=== PATIENT | male | born 1980 | race Caucasian/White ===

== ENCOUNTER 2024-03-23 17:43 | Emergency (ER) | payer OTHER, SELFPAY ==
[2024-03-23 17:43] VITALS: BP 144/84; PULSE 87; RESP 17; TEMP 36.2; O2SAT 97
--- NOTE | 2024-03-23 17:45 | RT.EKG_ITS ---
APPROVED REPORT Exam: Resting ECG Reason for Exam: Altered mental status Patient Location: E HR:86 bpm ECG Measurements Heart Rate 86 AXIS MD 140 P 61 QRSd 89 QRS -27 QT 367 T 33 QTc 440 Conclusion Sinus rhythm. 86 no stemi
--- NOTE | 2024-03-23 18:00 | DI.CT_ITS ---
Exam(s) CT HEAD WO EXAM: CT HEAD WO CLINICAL HISTORY: ams. TECHNIQUE: Imaging Protocol: Axial computed tomography images with coronal and sagittal reformatted images were created and reviewed COMPARISON: No exams were available for comparison FINDINGS: Ventricles and Extra axial spaces: Normal in size and morphology for the patient's age. Hemorrhage: None. Cerebral parenchyma: No evidence of acute infarct or mass. Midline shift: None. Brainstem/Cerebellum: Normal. Calvarium: Normal. Visualized Paranasal sinuses:Clear. Mastoids: Clear. Soft Tissues: Unremarkable. ORBITS: Unremarkable. PITUITARY: Not enlarged. IMPRESSION: No acute intracranial process. RADIATION DOSE DELIVERED: Total DLP DATA REPOSITORY: All CT scans at this facility are submitted to the National Radiology Data Registry (NRDR) Dose Index Registry (DIR) with the [employer] ([employer]). RADIATION OPTIMIZATION: All CT scans at this facility use at least one of these dose optimization te chniques: automated exposure control; mA and/or kV adjustment per patient size (includes targeted exa ms where dose is matched to clinical indication); or iterative reconstruction.
[2024-03-23 18:26] LABS: Abs Immature Grans 0.03 10^3/uL (0.0-0.06); Absolute Basophil Count 0.08 10^3/uL (0.0-0.2); Absolute Eosinophil Count 0.28 10^3/uL (0.0-0.7); Absolute Lymphocyte Count 2.46 10^3/uL (1.2-3.4); Absolute Monocyte Count 0.74 10^3/uL (0.1-0.8); Basophils % 0.8 %; Eosinophils % 2.9 %; HCT 45.8 % (40.0-50.0); HGB 15.5 g/dL (13.5-17.5); Immature Grans % 0.3 %; Lymphocytes % 25.7 %; MCH 28.9 pg (27.0-33.0); MCHC 33.8 % (32.0-36.0); MCV 85 fL (80-95); MPV 8.4 fL (8.0-11.0); Monocytes % 7.7 %; Neutrophils % 62.6 %; Platelet Count 384 10^3/uL (130-400); RBC 5.37 10^6/uL (4.36-5.78); RDW 13.7 % (11.8-14.1); RDW-SD 42.5 fL; WBC 9.59 10^3/uL (4.4-10.8)
[2024-03-23 19:03] LABS: ALT 51 U/L (16-63); AST 28 U/L (15-37); Albumin 3.6 g/dL (3.4-5.0); Alkaline Phosphatase 81 U/L (46-116); Anion Gap 9.9 mmol/L (3-11); BUN 10 mg/dL (7-18); Bilirubin, Total 0.45 mg/dL (0.2-1.0); CO2 26.1 mmol/L (21.0-32.0); Calcium 10.1 mg/dL (8.5-10.1); Chloride 104 mmol/L (98-107); Estimated GFR 96.37 (mL/min/1.73m2); Glucose 174 mg/dL (74-106); Potassium 3.2 mmol/L (3.5-5.1); Sodium 140 mmol/L (136-145); TSH (W/Ref FT4) 0.91 uIU/mL (0.36-3.74); Total Protein 7.2 g/dL (6.4-8.2)
[2024-03-23 19:05] LABS: Ammonia 21 umol/L (11-32)
[2024-03-23 19:16] LABS: ETHANOL BLOOD < 3.0 mg/dL (<10)
[2024-03-23] MEDS: Potassium Chloride Liquid 20 MEQ PKT 40 MEQ PO (19:21)
--- NOTE | 2024-03-23 22:42 | ED.GENADUL_ITS ---
Discharge Plan Disposition Patient Disposition: Home Condition: Stable Discharge Details Clinical Impression: Acute alteration in mental status Primary Care Provider: Unknown,Unknown ED Provider: Jose Khan Discharge Instructions Additional Instructions: Lab work and CT scan are all unremarkable and do not explain the reported change in the patient's mental status. He has had a normal mental status and normal functioning while in the emergency department. He did have some mild hypokalemia that was repleted with oral medication. HPI General Date/Time Provider Initiated Documentation: 03/23/24 17:51 . Limitations to Documentation: altered mental status and physical limitation . Information obtained by: patient, police and EMS . HPI Narrative: 43-year-old gentleman with unknown past medical history [facility]. Patient has been in custody for 2 days. Per report this afternoon the patient had a change in his mental status and was unresponsive. No additional information was provided. There is no report of seizure activity. EMS reports when they arrived, the patient seemed volitionally unresponsive and eventually started talking with them. There was no observed seizure activity or trauma. Patient does not report any concerns or issues to me. General Stated Complaint: AMS/LOC EVIE: 2 Exam Narrative Exam Narrative: Review of Systems: All systems reviewed & are unremarkable except as noted in HPI and below Well-developed, no acute distress NCAT PERRL, normal conjunctiva RRR Unlabored respiratory effort Nondistended abdomen Extremities w/o deformity, no cyanosis, no edema No rashes or lesions. no focal neurologic deficits Appropriate mood and affect Course Vital Signs Vital signs: Vital Signs Temperature 36.2 C L 03/23/24 17:43 Pulse 87 03/23/24 17:43 Respiratory Rate 17 03/23/24 17:43 Blood Pressure 144/84 H 03/23/24 17:43 Pulse Oximetry 97 03/23/24 17:43 Temperature 36.2 C L 03/23/24 17:43 Temperature Source Skin 03/23/24 17:43 Pulse 87 03/23/24 17:43 Respiratory Rate 17 03/23/24 17:43 Blood Pressure 144/84 H 03/23/24 17:43 Blood Pressure Position Supine 03/23/24 17:43 Pulse Oximetry 97 03/23/24 17:43 Oxygen Delivery Method Room Air 03/23/24 17:43 Oxygen Flow Rate 0 03/23/24 17:43 Lab/Test Results Lab/Test Results: Laboratory Tests Range/Units 03/23/ 18:19 WBC (4.4-10.8) 10^3/uL 9.59 RBC (4.36-5.78) 10^6/uL 5.37 Hgb (13.5-17.5) g/dL 15.5 Hct (40.0-50.0) % 45.8 MCV (80-95) fL 85 MCH (27.0-33.0) pg 28.9 MCHC (32.0-36.0) % 33.8 RDW (11.8-14.1) % 13.7 Plt Count (130-400) 10^3/uL 384 MPV (8.0-11.0) fL 8.4 Immature Gran % % 0.3 Neutrophils % % 62.6 Lymphocytes % % 25.7 Monocytes % % 7.7 Eosinophils % % 2.9 Basophils % % 0.8 Nucleated RBC % (0.0-0.3) % 0.0 Absolute Neutrophils (1.2-6.7) 10^3/uL 6.00 Absolute Lymphocytes (1.2-3.4) 10^3/uL 2.46 Absolute Monocytes (0.1-0.8) 10^3/uL 0.74 Absolute Eosinophils (0.0-0.7) 10^3/uL 0.28 Absolute Basophils (0.0-0.2) 10^3/uL 0.08 Sodium (136-145) mmol/L 140 Potassium (3.5-5.1) mmol/L 3.2 L Chloride (98-107) mmol/L 104 Carbon Dioxide (21.0-32.0) mmol/L 26.1 Anion Gap (3-11) mmol/L 9.9 BUN (7-18) mg/dL 10 Creatinine (0.70-1.30) mg/dL 1.0 Est GFR (CKD-EPI 2020) (mL/min/1.73m2) 96.37 Glucose (74-106) mg/dL 174 H Calcium (8.5-10.1) mg/dL 10.1 Total Bilirubin (0.2-1.0) mg/dL 0.45 AST (15-37) U/L 28 ALT (16-63) U/L 51 Alkaline Phosphatase (46-116) U/L 81 Ammonia (11-32) umol/L 21 Total Protein (6.4-8.2) g/dL 7.2 Albumin (3.4-5.0) g/dL 3.6 TSH (0.36-3.74) uIU/mL 0.91 Ethyl Alcohol (<10) mg/dL < 3.0 Medical Decision Making Evaluation of apparent altered mental status. On arrival, the patient is awake alert, oriented and following commands. He does seem withdrawn and uninterested in participating with examination, but I do not find any focal abnormalities. An EKG was obtained to evaluate for possible dysrhythmia as a cause of his change in mental status. I reviewed and independently interpreted, sinus 86, normal axis, no acute dysrhythmias or ischemic change. I do not appreciate any signs of trauma on his examination. He was arrested on assault charges, no drug-related charges. No known history of drug-related abuse. Would consider intoxication a possible etiology. Lab work was reviewed. No leukocytosis or anemia. Mild hypokalemia of 3.2, this was repleted orally. Slightly elevated glucose at 174 without any evidence of DKA. TSH and ammonia are within normal limits. Alcohol level negative. Attempted to get a urinalysis, but the patient chose not to void in the urinal. Head CT was also obtained. I reviewed the radiology report, there is no acute abnormality. This time the patient is eating drinking, ambulatory in the emergency department. I have no explanation for the reports of concern, it is possible that this is behavioral as suspected by penit[facility]iary staff. Recommend close monitoring and follow-up as needed. Quality:[facility] Related Social Needs: No Data to Display PFSH All Active Problems (Updated 03/23/24 @ 19:59 by Jose Khan MD) Acute alteration in mental status (Acute) Social History Smoking risk assessment performed?: No
== END 2024-03-23 20:06 | disposition home or self-care (01) ==
PROVIDERS: Emergency Provider Emergency Medicine
DX: R41.82 Altered mental status, unspecified (principal); E87.6 Hypokalemia
CPT/HCPCS: 36415; 80053; 93005; 99285; 70450; 80320; 82140; 84443; 85025; 93010; 99284